=== PATIENT | female | born 1990 | race Caucasian/White ===

== ENCOUNTER 2019-09-18 15:56 | Emergency (ER) | payer OTHER, SELFPAY ==
--- NOTE | ~2019-09-18 | XR_ITS ---
EXAMINATION: XR abdomen/kub 1V DATE: 09/18/2019 18:19 INDICATION: Mid abdominal pain. Vomiting and diarrhea. TECHNIQUE: A supine view of the abdomen on 2 radiographs was obtained. COMPARISON: None. FINDINGS: Small amount of gas and stool scattered throughout the colon. No dilated loops of gas-filled bowel to suggest obstruction. Linear foreign body projecting over the central pelvis likely IUD seen end on. Lung bases are clear. Bones are unremarkable. IMPRESSION: 1. Mild bowel gas pattern. 2. Likely IUD in the pelvis. Reviewed, dictated and finalized at location A. [facility]
[2019-09-18 16:15] VITALS: BP 134/77; PULSE 66; RESP 20; TEMP 36.8; O2SAT 100
--- NOTE | 2019-09-18 17:29 | ED.GENADULT ---
HPI - General Adult General Chief complaint: Nausea/Vomiting/Diarrhea Stated complaint: stomach cramps diarrhea Time Seen by Provider: 09/18/19 17:30 Source: patient and RN notes reviewed Mode of arrival: ambulatory Limitations: no limitations History of Present Illness HPI narrative: 29-year-old female presents with complaints of body aches, diarrhea, decrease appetite, nausea, dry heaves, and emesis, abdominal pain, and intermittent dizziness for 1 day. Nausea and diarrhea with vomiting and abdominal pain. No treatment. Mild cramping started today. Three episodes of watery brown diarrhea stools without blood today, the last one at 14:30. Four-five episodes of emesis (started today about 12:30) without blood or coffee ground contents, last at 16:15. Exacerbating factors consist of eating and drinking. Denies fever or chills. Denies headache, back pain, dysuria, and blood in stool. Had several crackers prior to arrival and tolerated po intake. Remains active. Erin denies being , LMP 2 weeks ago. Some parts of this dictation were generated by voice recognition software and may contain typographical and/or grammatical inaccuracies. Related Data Allergies Allergy/AdvReac Type Severity Reaction Status Date / Time No Known Allergies Allergy Verified 09/18/19 16:35 Review of Systems Review of Systems: Narrative: CONSTITUTIONAL: Denies fever, chills, sweats. EYES: Denies visual changes, redness, discharge. ENT: Denies rhinorrhea, congestion, sore throat, otalgia. CARDIOVASCULAR: Denies chest pain, palpitations, edema. RESPIRATORY: Denies dyspnea, wheezing, cough. GASTROINTESTINAL: Complains of abdominal pain, vomiting, diarrhea, nausea, and decrease appetite. GENITOURINARY: Denies dysuria, hematuria, abnormal discharge. SKIN: Denies rash or itching. MUSCULOSKELETAL: Denies acute back pain, joint pain, or myalgia. NEUROLOGIC: Denies numbness or focal weakness. PSYCHIATRIC: Denies anxiety or depression. All systems reviewed & are unremarkable except as noted in HPI and below. [facility] Past Medical History Medical History (Updated 09/26/19 @ 02:50 by KELLEY Dutton) No significant past medical history Surgical History Surgical History (Updated 09/26/19 @ 02:50 by Tatonya M. Amador, [employer] MARGARINE) No significant past surgical history Family History Family History (Updated 09/26/19 @ 02:52 by KELLEY Dutton) Grandparent Carcinoma of colon Social History Social History (Updated 09/26/19 @ 02:54 by KELLEY Dutton) Smoking status: Former smoker Alcohol intake: current Alcohol use details: occasionally Substance use: never Living arrangements: with family Occupation/Education: occupation Gender identity (if verbalized by the patient): Female Comments At time of signature, I have reviewed and agree with nursing past medical, surgical, social, and family history. Please see nursing chart for further information. There is no relevant family history pertinent to the presenting complaint. Exam Narrative: Exam Narrative: GENERAL: This is a well-nourished, well-developed patient, in no apparent distress. Talks in full sentences without deficits and ambulates with steady gait without dyspnea. HEAD: normocephalic, atraumatic. EYES: PERRL. Sclera clear/white. Vision is grossly intact. MOUTH: Moist mucous membranes. THROAT: Mucous membranes moist, posterior pharynx clear. NECK: Neck supple, non-tender without lymphadenopathy, masses or thyromegaly. CARDIOVASCULAR: Regular rate and rhythm without murmurs, gallops, or rubs. Orthostatic vital WNL see vital sign section please, thanks. RESPIRATORY: Clear to auscultation. Breath sounds equal bilaterally. No wheezes, rales, or rhonchi. GASTROINTESTINAL: Abdomen soft, no significant tenderness, nondistended. Bowel sounds are active. No hepato-splenomegaly, or palpable masses. No guarding. No palpable abdominal hernia. SKIN: warm,
[2019-09-18 17:50] VITALS: BP 102/68; PULSE 69
[2019-09-18 17:55] VITALS: BP 118/68; BP 122/68; PULSE 61; PULSE 64
[2019-09-18] MEDS: ONDANSETRON HCL ODT 4 MG TABLET PO (17:56)
== END 2019-09-18 18:50 | disposition home or self-care (01) ==
PROVIDERS: Emergency Provider Nurse Practitioner Family
DX: K52.9 Noninfective gastroenteritis and colitis, unspecified (principal)
CPT/HCPCS: 74018; 99203; A9270; G0463